=== PATIENT | female | born 1945 ===

== ENCOUNTER 2019-03-09 05:15 | Day surgery (SDC) | payer OTHER ==
[~2019-03-09 05:15] MED LIST: ARICEPT5 MG PO; BONIVA150 MG PO; LEVO-T125 MCG PO; OMEPRAZOLE40 MG PO; ZOCOR20 MG PO
== END 2019-03-09 11:25 | disposition home or self-care (01) ==
LOC: CIR.AMB 05:15
DX: H72.01 Central perforation of tympanic membrane, right ear (principal)